=== PATIENT | male | born 1975 | race Caucasian/White ===

== ENCOUNTER 2019-02-06 14:50 | Emergency (ER) | payer SELFPAY ==
[~2019-02-06] VITALS: Ht 172.7 cm; Wt 79.5 kg
[2019-02-06 14:58] VITALS: Ht 172.7 cm; Wt 79.5 kg
[2019-02-06 16:43] VITALS: BP 131/107; PULSE 80; RESP 16
--- NOTE | 2019-02-06 17:27 | ERD ---
ER Documentation Chief Complaint Chief Complaint pt is bib self with c/o abd pain x 3 months worse today HPI 43-year-old male with no significant past medical history presenting with left- sided abdominal pain that has been intermittent for the past 3 months. He states the pain is on his left mid abdomen and radiates to his left back. No alleviating or exacerbating factors. Described as cramping. Currently he is denying any pain. No associated nausea, vomiting, diarrhea, constipation, hematochezia, melena, fever or chills. No dysuria or hematuria. He has not seen his primary care doctor regarding this. There is no acute change in his symptoms. ROS All systems reviewed and are negative except as per history of present illness. Medications Home Meds Reported Medications Cyanocobalamin (Vitamin B-12) (Vitamin B-12) Unknown Strength Tab.subl, 1 SL DAILY 02/06/19 [Neurofortan] No Conflict Check, 1 TAB PO BID 02/06/19 Allergies Allergies: Coded Allergies: No Known Allergy (Unverified , 02/06/19) PMhx/Soc Medical and Surgical Hx: pt denies Surgical Hx History of Surgery: No Anesthesia Reaction: No Hx Neurological Disorder: No Hx Respiratory Disorders: No Hx Cardiac Disorders: No Hx Psychiatric Problems: No Hx Miscellaneous Medical Probl: No Hx Alcohol Use: No Hx Substance Use: No Hx Tobacco Use: No Smoking Status: Never smoker FmHx Family History: No diabetes Physical Exam Vitals Vital Signs Date Temp Pulse Resp B/P (MAP) Pulse Ox O2 O2 Flow FiO2 Time Delivery Rate 02/06/19 80 16 131/107 100 Room Air 16:43 (115) 02/06/19 99.3 92 18 146/106 99 14:58 (119) Physical Exam Const: No acute distress Head: Atraumatic Eyes: Normal Conjunctiva ENT: Normal External Ears, Nose and Mouth. Neck: Full range of motion. No meningismus. Resp: Clear to auscultation bilaterally Cardio: Regular rate and rhythm, no murmurs. 2+ distal pulses in all 4 extremities Abd: Soft, non tender, non distended. No pulsatile mass. Normal bowel sounds Skin: No petechiae or rashes Back: No midline or flank tenderness Ext: No cyanosis, or edema Neur: Awake and alert Psych: Normal Mood and Affect Result Diagram: 02/06/19 1730 02/06/19 1730 Results 24 hrs Laboratory Tests Test 02/06/19 17:30 White Blood Count 11.2 10^3/ul Red Blood Count 5.58 10^6/ul Hemoglobin 16.1 g/dl Hematocrit 49.3 % Mean Corpuscular Volume 88.4 fl Mean Corpuscular Hemoglobin 28.9 pg Mean Corpuscular Hemoglobin Concent 32.7 g/dl Red Cell Distribution Width 16.8 % Platelet Count 358 10^3/UL Mean Platelet Volume 9.7 fl Immature Granulocytes % 0.500 % Neutrophils % 63.1 % Lymphocytes % 26.1 % Monocytes % 9.3 % Eosinophils % 0.4 % Basophils % 0.6 % Nucleated Red Blood Cells % 0.0 /100WBC Immature Granulocytes # 0.060 10^3/ul Neutrophils # 7.1 10^3/ul Lymphocytes # 2.9 10^3/ul Monocytes # 1.0 10^3/ul Eosinophils # 0.0 10^3/ul Basophils # 0.1 10^3/ul Nucleated Red Blood Cells # 0.0 10^3/ul Urine Color YELLOW Urine Clarity CLEAR Urine pH 6.0 Urine Specific [place] 1.027 Urine Ketones NEGATIVE mg/dL Urine Nitrite NEGATIVE mg/dL Urine Bilirubin NEGATIVE mg/dL Urine Urobilinogen 1+ mg/dL Urine Leukocyte Esterase NEGATIVE Lisy/ul Urine Microscopic RBC 3 /HPF Urine Microscopic WBC 1 /HPF Urine Mucus FEW /HPF Urine Hemoglobin 1+ mg/dL Urine Glucose NEGATIVE mg/dL Urine Total Protein NEGATIVE mg/dl Sodium Level 144 mmol/L Potassium Level 4.1 mmol/L Chloride Level 104 mmol/L Carbon Dioxide Level 25 mmol/L Anion Gap 15 Blood Urea Nitrogen 24 mg/dl Creatinine 1.03 mg/dl Est Glomerular Filtrat Rate mL/min > 60 mL/min Glucose Level 101 mg/dl Calcium Level 9.3 mg/dl Total Bilirubin 0.5 mg/dl Direct Bilirubin 0.00 mg/dl Indirect Bilirubin 0.5 mg/dl Aspartate Amino Transf (AST/SGOT) 26 IU/L Alanine Aminotransferase (ALT/SGPT) 33 IU/L Alkaline Phosphatase 79 IU/L Total Protein 9.1 g/dl Albumin 4.9 g/dl Globulin 4.20 g/dl Albumin/Globulin Ratio 1.16 Procedures/MDM EMERGENT LABS AND DIAGNOSTIC STUDIES: Lab Results above were reviewed and interpreted by me. CBC: no anemia or evidence of infection CMP: No evidence of electrolyte abnormality, renal failure, hypoglycemia, liver failure, or biliary obstruction UA: no evidence of infection Initial Nursing notes reviewed. Previous Medical Records requested via the Electronic Health Record. EMERGENCY DEPARTMENT COURSE / MEDICAL DECISION MAKING: Patient is presenting with chronic abdominal pain that has been intermittent, with no acute change in symptoms today. Vitals are unremarkable. Exam did not reveal any abdominal tenderness. Doubt aortic dissection or AAA. Do not suspect acute surgical abdomen. Labs did not show any significant abnormalities. I explained to the patient that the cause of his pain is likely not a medical emergency and recommended follow-up with his primary care doctor outpatient for further testing. As the patient states he does not have a primary care doctor, I provided him with a list of outpatient clinics. Return precautions were discussed. Patient's blood pressure was elevated (>120/80) but appears stable without e vidence of hypertensive emergency or urgency. The patient was counseled about the risks of hypertension and urged to pursue outpatient monitoring and therapy within a week with their primary care physician. Departure Diagnosis: Primary Impression: Abdominal pain Abdominal location: left lower quadrant Qualified Codes: R10.32 - Left lower quadrant pain Condition: Stable EKANUJA MCKINNEY MD Feb 06, 2019 17:27
[2019-02-06] MEDS ORDERED: [UNRECOGNIZED DRUG - OTHER] PO (17:52)
[2019-02-06] MEDS ORDERED: CYAN500T44 SL (17:53)
== END 2019-02-06 18:20 | disposition home or self-care (01) ==
LOC: E/R 14:50
DX: R10.32 Left lower quadrant pain (principal); R40.2142 Coma scale, eyes open, spontaneous, at arrival to emergency department; R40.2362 Coma scale, best motor response, obeys commands, at arrival to emergency department; R40.2252 Coma scale, best verbal response, oriented, at arrival to emergency department
CPT/HCPCS: 36415; 80053; 81001; 85025; 99283

== ENCOUNTER 2019-03-20 22:07 | Emergency (ER) | payer SELFPAY ==
[~2019-03-20] VITALS: Wt 79.9 kg
[~2019-03-20 22:07] MED LIST: CYAN500T44 SL; [UNRECOGNIZED DRUG - OTHER] PO
[2019-03-21] MEDS ORDERED: IBUPROFEN 600 MG TAB PO ONE (01:00)
[2019-03-21] MEDS ORDERED: IBUP-1542 PO (02:49)
[2019-03-21] MEDS ORDERED: CYCL10TA7 PO (02:49)
--- NOTE | 2019-03-21 03:00 | ERD ---
ER Documentation Chief Complaint Chief Complaint BILAT KNEE PAIN W/ NUMBNESS DOWN TO FEET X'S 1 MONTH HPI 44-year-old Prydeinig speaking male presents to the ED complaining of intermittent lower back pain x1 month. Patient states he works in [employer] and does heavy lifting often. He states his pain is located to his mid lower back and radiates towards his bilateral anterior thighs. Pain is worse with certain movements. He reports associated numbness and tingling down to his feet. Denies any focal weakness. Denies any loss of bowel or bladder control. Denies any fevers or chills. He has not been taking any medications for this. No direct trauma or fall reported. ROS All systems reviewed and are negative except as per history of present illness. Medications Home Meds Active Scripts Cyclobenzaprine Hcl* (Cyclobenzaprine Hcl*) 10 Mg Tablet, 10 MG PO TID, #15 TAB Prov:DISHIGRIKIAN,ZEPYUR N PA-C 03/21/19 Ibuprofen* (Motrin*) 600 Mg Tab, 600 MG PO Q6H PRN for PAIN AND OR ELEVATED TEMP, #30 TAB Prov:DISHIGRIKIAN,ZEPYUR N PA-C 03/21/19 Reported Medications Cyanocobalamin (Vitamin B-12) (Vitamin B-12) Unknown Strength Tab.subl, 1 SL DAILY 02/06/19 [Neurofortan] No Conflict Check, 1 TAB PO BID 02/06/19 Allergies Allergies: Coded Allergies: No Known Allergy (Unverified , 02/06/19) PMhx/Soc History of Surgery: No Anesthesia Reaction: No Hx Neurological Disorder: No Hx Respiratory Disorders: No Hx Cardiac Disorders: No Hx Psychiatric Problems: No Hx Miscellaneous Medical Probl: No Hx Alcohol Use: No Hx Substance Use: No Hx Tobacco Use: No Physical Exam Vitals Vital Signs Date Temp Pulse Resp B/P (MAP) Pulse Ox O2 O2 Flow FiO2 Time Delivery Rate 03/20/19 97.2 82 18 165/82 96 22:13 (109) Physical Exam Const: No acute distress Head: Atraumatic Eyes: Normal Conjunctiva ENT: Normal External Ears, Nose and Mouth. Neck: Full range of motion. No meningismus. Resp: Clear to auscultation bilaterally Cardio: Regular rate and rhythm, no murmurs Skin: No petechiae or rashes Back: + Lower lumbar midline and paraspinal TTP. No step offs. Distally NVI. Sensation and motor grossly intact. Ext: No cyanosis, or edema Neur: Awake and alert Psych: Normal Mood and Affect Results 24 hrs Current Medications Medications Dose Sig/Sona Start Time Status Last (Trade) Ordered Route PRN Stop Time Admin Dose Reason Admin Ibuprofen 600 mg ONCE ONCE 03/21/19 DC 03/21/19 (Motrin) PO 01:00 00:45 03/21/19 01:01 Procedures/MDM EMERGENT LABS AND DIAGNOSTIC STUDIES: Radiology Results as interpreted by Radiology: PROCEDURE: X-ray lumbar spine. CLINICAL INDICATION: Lumbar spine pain. TECHNIQUE: Single lateral view of the lumbar spine. COMPARISON: None. FINDINGS: Mild anterior wedging is seen at the T11 and T12 levels, otherwise age indeterminate and nonspecific. These findings do not have the appearance of fractures. No evident acute fracture in the lumbar spine. Disc spaces are substantially preserved. Lumbar spine anatomic alignment is preserved. Small superior endplate osteophytes seen at the L4 and L5 levels. The soft tissues unremarkable. IMPRESSION: No acute fracture. Nursing Notes Reviewed. EMERGENCY DEPARTMENT COURSE / MEDICAL DECISION MAKIN yo patient presents today with atraumatic back pain. There are no focal neurological deficits on physical exam. XR of L spine positive for DDD, likely the source of his pain/sciatica. I have low suspicion for epidural abscess, cauda equina, cord compression, spinal tumor/mass or compression fracture therefore no further imaging is indicated at this time. Patient will be treated conservatively with appropriate pain control. Given orthopedic and clinical referral for follow up. May also benefit from Physical therapy. Return to the ED for any new or worsening symptoms. PRESCRIPTIONS: Ibuprofen, Flexeril SPECIALIST FOLLOW UP RECOMMENDED: Ortho Blood Pressure Assessment: Patient's blood pressure was elevated (>120/80) but appears stable without evidence of hypertension emergency or urgency. The patient was counseled about the risks of hypertension and urged to pursue o utpatient monitoring and therapy within a week with their primary care physician. Departure Diagnosis: Primary Impression: Back pain Back pain location: low back pain Chronicity: chronic Back pain laterality: bilateral Sciatica presence: with sciatica Sciatica laterality: bilateral sciatica Qualified Codes: M54.42 - Lumbago with sciatica, left side; M54.41 - Lumbago with sciatica, right side; G89.29 - Other chronic pain Condition: Stable Patient Instructions: Back Pain W/ Sciatica Ref[facility] Usted se jain hecho un examen mdico de control que le indica que no est en brit condicin que requiera tratamiento urgente en el Departamento de Emergencia. Un estudio ms profundo y el tratamiento de fraire condicin pueden esperar sin ningn riesgo hasta que usted sea atendida/o en el consultorio de fraire mdico o brit clnica. Es responsabilidad suya arreglar brit natividad para el seguimiento del fady. MANEJO DE CONDICIONES NO URGENTES EN EL FUTURO 1) Si usted tiene un mdico de atencin primaria: Usted debera llamar a fraire mdico de atencin primaria antes de venir al departamento de emergencia. Despus de las horas de consultorio, fraire doctor o fraire asociado/a est disponible por telfono. El mdico o enfermero de guadalupe en el servicio telefnico puede asesorarle por stephane medio para atender el problema, o fady contrario se puede programar brit natividad. 2) Si usted no tiene un mdico de atencin primaria: Llame al mdico o clnica de referencia que aparece abajo cj las horas de consultorio para hacer brit natividad para que le vean. CLINICAS: [facility] [phone] [address] [facility], [place] [phone] [place] [place] [facility] [phone] [place] [id number] [phone] [place] [id number] [phone] [facility]. [phone] [address] . [facility] () Usted se jain hecho un examen mdico de control que le indica que no est en brit condicin que requiera tratamiento urgente en el Departamento de Emergencia. Un estudio ms profundo y el tratamiento de fraire condicin pueden esperar sin ningn riesgo hasta que usted sea atendida/o en el consultorio de fraire mdico o brit clnica. Es responsabilidad suya arreglar brit natividad para el seguimiento del fady. MANEJO DE CONDICIONES NO URGENTES EN EL FUTURO 1) Si usted tiene un mdico de atencin primaria: Usted debera llamar a fraire mdico de atencin primaria antes de venir al departamento de emergencia. Despus de las horas de consultorio, fraire doctor o fraire asociado/a est disponible por telfono. El mdico o enfermero de guadalupe en el servicio telefnico puede asesorarle por stephane medio para atender el problema, o fady contrario se puede programar brit natividad. 2) Si usted no tiene un mdico de atencin primaria: Llame al mdico o condado institucions de referencia que aparece abajo cj las horas de consultorio para hacer brit natividad para que le vean. SI USTED NO PUEDE PAGAR PARA NICOLETTE UN MEDICO puede ir a: [facility] [address] [place] [address] [facility] [address] [place] [address] [facility] [address] [place] [address] [facility]A [facility] [address] [place] [address] [facility] Urgent Care 7 a.m.- 11 p.m. Every Day of the Week NO APPOINTMENT OR AUTHORIZATION NEEDED Additional Instructions: Paciente aconseja volver a Departamento de urgencias inmediatamente para sntomas nuevos o que empeoran . Paciente aconseja posteriores con el PCP en 1-2 segundo. Si el paciente no tiene ninguna de atencin primaria pueden seguir con [facility] [address] [place] [address] [address] SONG BOLANOS PA-C March 21, 2019 03:00
[2019-03-21 03:40] VITALS: BP 145/80; PULSE 78; RESP 18
== END 2019-03-21 03:40 | disposition home or self-care (01) ==
LOC: FTE 22:07
DX: M54.42 Lumbago with sciatica, left side (principal); M54.41 Lumbago with sciatica, right side
CPT/HCPCS: 72020